=== PATIENT | female | born 1980 | race Two or more races ===

== ENCOUNTER → 2024-08-27 | Outpatient (CLI) | payer MEDICAID, SELFPAY ==
--- NOTE | 2024-08-27 14:30 | XR_ITS ---
Examination: Breast ultrasound complete, bilateral Date and time of exam: August 27, 2024 1543 hrs. Indications: Bilateral breast palpable lumps noticed beginning 6 years ago, strong family history breast cancer, sister Technique: Real-time grayscale ultrasonographic imaging bilateral breasts, including all 4 quadrants as well as nipple retroareolar and axillary regions. Findings: Sonographic images right breast Multiple benign cysts 10:00 oval mass circumscribed 6 x 4 mm 11:00 nodule lobular margins 8 x 7 mm Sonographic images left breast Multiple benign cysts 5:00 nodule lobular margins 9 x 9 mm Impression: BI-RADS Category 0: Incomplete: Need additional imaging evaluation Recommend diagnostic mammography follow-up Recommend 6 month bilateral breast sonography follow-up
== END | disposition home or self-care (01) ==
LOC: CDIM 14:49
PROVIDERS: PCP Nurse Practitioner Family; Referring Provider Nurse Practitioner Family; Visit Provider Nurse Practitioner Family
DX: R92.8 Other abnormal and inconclusive findings on diagnostic imaging of breast (principal)
CPT/HCPCS: 76641